=== PATIENT | male | born 1935 | race Caucasian/White ===

== ENCOUNTER 2019-08-31 16:18 | Inpatient (IN) ==
[2019-08-31] MEDS ORDERED: ZOFRAN IV ONE (16:53)
[2019-08-31] MEDS ORDERED: MORPHINE IV ONE (16:53)
--- NOTE | 2019-08-31 17:33 | EKG Report ---
Test Performed on : 08/31/2019 5:22:07 PM Test Reason : pre-op Blood Pressure : / mmHG Vent. Rate : 060 BPM Atrial Rate : 060 BPM P-R Int : 172 ms QRS Dur : 158 ms QT Int : 468 ms P-R-T Axes : 000 259 096 degrees QTc Int : 468 ms AV dual-paced rhythm Abnormal ECG When compared with ECG of 21-MAR-2016 08:18, Electronic ventricular pacemaker has replaced Electronic atrial pacemaker Unconfirmed Result
[2019-08-31 17:53] LABS: BASO# 0.03 X1000 (0.0-0.2); BASO% 0.2 % (0.0-0.8); EOS# 0.18 X1000 (0.0-0.7); EOS% 1.3 % (0.0-10.0); HEMATOCRIT 44.2 % (42.0-52.0); HEMOGLOBIN 14.5 g/dL (14.0-18.0); IMM GRAN# 0.05 X1000 (0.0-0.04); IMM GRAN% 0.4 % (0.0-0.5); LYMPH# 1.97 X1000 (1.2-3.4); LYMPH% 14.5 % (20.5-51.1); MCH 33.9 PG (27-31); MCHC 32.8 g/dL (33-37); MCV 103.3 FL (81-99); MONO# 0.65 X1000 (0.11-0.59); MONO% 4.8 % (1.7-9.3); MPV 9.8 FL (7.4-10.4); NEUT# 10.73 X1000 (1.4-6.5); NEUT% 78.8 % (42.2-75.2); PLT 171 X1000 (130-400); RBC 4.28 XMIL (4.7-6.1); RDW 12.2 % (11.5-14.5); WBC 13.61 X1000 (4.8-10.8)
[2019-08-31 17:54] LABS: URINE SOURCE CLEAN CATCH
[2019-08-31 17:56] LABS: BILIRUBIN URINE NEGATIVE (NEGATIVE); BLOOD URINE NEGATIVE (NEGATIVE); COLOR YELLOW; GLUCOSE URINE NEGATIVE (NEGATIVE); KETONE URINE NEGATIVE (NEGATIVE); LEUKOCYTES URINE NEGATIVE (NEGATIVE); NITRITE URINE NEGATIVE (NEGATIVE); PROTEIN URINE TRACE mg/dL (NEGATIVE); SP GRAVITY URINE 1.025; TURBIDITY URINE CLEAR (CLEAR); UROBILINOGEN URINE NORMAL (NORMAL)
[2019-08-31 17:57] LABS: UR EPITHELIAL CELLS <10 /HPF (<10); URINE BACTERIA NEGATIVE /HPF; URINE RBC <10 /HPF (<10); URINE WBC <10 /HPF (<10)
[2019-08-31 18:03] LABS: INR 1.07; PTT 26.7 Seconds (22.3-41.8)
--- NOTE | 2019-08-31 18:08 | Diag Imaging Result Doc PS360 ---
EXAM: CHEST-1 VIEW HISTORY: pre-op TECHNIQUE: Single view COMPARISON: 04/09/2015 FINDINGS: The lungs are well expanded. The heart is not enlarged. Left pacemaker The vessels are not distended. There are no infiltrates. No effusion identified. Nodules in the mid right lung on the prior exam are actually more difficult to see on the current exam. IMPRESSION: No definite metastatic Electronically signed by Chun Coreas 08/31/2019 6:05 PM
--- NOTE | 2019-08-31 18:10 | Diag Imaging Result Doc PS360 ---
EXAM: XRAY PELVIS W/HIP 2-3VW LT HISTORY: fall TECHNIQUE: Three views COMPARISON: 10/04/2017 FINDINGS: There is a left femoral neck fracture. Femoral head remains in the acetabulum. Femoral shaft is rotated and superiorly placed. Prior replacement of the right hip. IMPRESSION: Left femoral neck fracture Electronically signed by Chun Coreas 08/31/2019 6:08 PM
[2019-08-31 18:25] LABS: ALB/GLOB RATIO 1.3; ALBUMIN 3.9 g/dL (3.5-5.0); CALCIUM 8.9 mg/dL (8.8-10.2); CREATININE 1.5 mg/dL (0.7-1.2); POTASSIUM 5.4 mmol/L (3.5-5.1); TOTAL BILIRUBIN 0.82 mg/dL (0.20-1.00); TOTAL PROTEIN 6.8 g/dL (6.3-8.3)
--- NOTE | 2019-08-31 18:25 | PROVIDER DOCUMENTATION ---
This chart was entered by Chin Ren Scribe, acting as scribe for Jaden Narayan MD. HPI-Musculoskeletal Pain/Inj - GENERAL Chief Complaint: Hip Injury Stated Complaint: FALL Time Seen by Provider: 08/31/19 16:34 Source: patient, family, EMS - HX OF PRESENT ILLNESS-MUSKULOSKELTAL Nature of Presenting Problem: 83 yom presents to the ed v/a ems after fall. EMS reports non syncopal fall , NO LOC, Denies fainting. EMS pt reports ZOILA leg & LT sided Groin pain. 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 Quality of Pain: reports: aching Severity in ED: mild Onset/Duration: just prior to arrival Timing: still present Modifying Factors: improves with: nothing Any recent injury?: No Locality of Occurance: Home Similar Symptoms Previously?: No Recently seen or treated by another doctor?: No - FALL INJURY Location of Pain/Injury: reports: lower extremity (ZOILA leg & Lt sided groin) Pain Radiation: reports: no radiation Reason for Fall: reports: tripped. denies: fainted Symptoms prior to fall:: reports: none Loss of Consciousness: no loss of consciousness Injury Associated Symptoms: denies: arm pain, back/neck pain, chest pain, nausea, shortness of breath, vomiting - HIP/PELVIS PAIN/INJURY Pain Radiation: reports: groin (Lt sided) Context / Method of Injury: reports: fall Associated Symptoms: reports: denies symptoms - LOWER EXTREMITY PAIN/INJURY Lower Extremities Pain: leg: left Context / Method of Injury: reports: fell Associated Symptoms: reports: denies symptoms Review of Systems - Adult - REVIEW OF SYSTEMS - ADULT Constitutional: denies: chills, fever Eyes: denies: eye pain Ears, Nose, Mouth & Throat: reports: no symptoms reported Cardiovascular: denies: chest pain, palpitations Respiratory: denies: cough, shortness of breath Gastrointestinal: denies: nausea, vomiting Genitourinary: reports: no symptoms reported Musculoskeletal: reports: see HPI. denies: back pain, neck pain Integumentary: reports: no symptoms reported Neurological: reports: no symptoms reported Psychiatric: reports: no symptoms reported Endocrine: reports: no symptoms reported Hematologic/Lymphatic: reports: no symptoms reported Allergic/Immunologic: reports: no symptoms reported All Other Systems: Reviewed and Negative Past History - Adult - PAST MEDICAL HISTORY-ADULT Review of Records: reports: Old Records Reviewed, Nursing Assessment Review, Medications Reviewed, Social history reviewed & non-contributory. Major Childhood Illnesses: reports: denies history Cardiovascular: reports: pacemaker Respiratory: reports: denies history Gastrointestinal: reports: GERD Obstetrical/Gynecological: reports: denies history Genitourinary: reports: other (urinary freq. per H& P) Musculoskeletal: reports: denies history Neurological: reports: denies history Psychiatric: reports: denies history Endocrine/Immune: reports: denies history Other Conditions: reports: denies history - PRIOR SURGERIES/PROCEDURES Surgical/Procedure History: reports: pacemaker, tonsillectomy - IMMUNIZATION STATUS Childhood Immunizations: See Nurse Assessment Flu Vaccine: See Nurse Assessment - FAMILY HISTORY Family History: reviewed, not pertinent - SOCIAL HISTORY Smoking: quit greater than 1 year, cigarettes Substance Use: alcohol Alcohol Use Frequency: once a week Number of drinks per typical drinking period:: 2 drinks (wine) Physical Exam-Injury Related - Physical Exam-Injury Related Initial Vital Signs Reviewed: Yes General Appearance: appears well, alert, mild distress Eyes: PERRL/EOMI Head, Ears, Nose, Mouth & Throat: pharynx normal Respiratory: chest non-tender, lungs clear, normal breath sounds Cardiovascular: normal peripheral pulses, regular rate, rhythm Abdominal Exam: non tender, soft Male Genitalia: deferred Rectal Exam: deferred Hemoccult Exam: deferred Extremity: other (shortend flex 45 degree angle) Integumentary: normal color Psych/Mental Status: normal mood/affect, normal thought content, normal thought process, oriented x 3 - Glascow Coma Score Best Eye Response ([place]): (4) open spontaneously Best Verbal Response ([place]): (5) oriented Best Motor Response ([place]): (6) obeys commands [place] Total: 15 Progress - PLAN OF CARE/RESULTS Progress/Plan/Lab Results: Vital Signs - 8 hr 08/31/19 16:59 Temperature 98.3 F Pulse Rate 67 Respiratory Rate 17 Blood Pressure 165/90 O2 Sat by Pulse Oximetry 95 Laboratory Results - last 24 hr 08/31/19 08/31/19 08/31/19 17:46 17:46 17:46 WBC 13.61 H RBC 4.28 L Hgb 14.5 Hct 44.2 MCV 103.3 H MCH 33.9 H MCHC 32.8 L RDW Std Deviation 12.2 Plt Count 171 MPV 9.8 Immature Gran % (Auto) 0.4 Neut % (Auto) 78.8 H Lymph % (Auto) 14.5 L Heard % (Auto) 4.8 Eos % (Auto) 1.3 Baso % (Auto) 0.2 Immature Gran # (Auto) 0.05 H Neut # (Auto) 10.73 H Lymph # (Auto) 1.97 Heard # (Auto) 0.65 H Eos # (Auto) 0.18 Baso # (Auto) 0.03 PT 14.0 INR 1.07 PTT (Actin FS) 26.7 Urine Source CLEAN CATCH Urine Color YELLOW Urine Turbidity CLEAR Urine pH 6.0 Ur Specific [place] 1.025 Urine Protein TRACE A Ur Glucose (Stick) NEGATIVE Ur Ketones (Stick) NEGATIVE Urine Blood NEGATIVE Urine Nitrite NEGATIVE Urine Bilirubin NEGATIVE Urobilinogen Dipstick NORMAL Urine Leukocytes NEGATIVE Urine WBC (Auto) <10 Urine RBC (Auto) <10 U Epithel Cells (Auto) <10 Urine Bacteria (Auto) NEGATIVE Orders Category Date Time Status Nursing- Obtain EKG ONCE Care 08/31/19 16:51 Active CHEST-1 VIEW [RAD] Stat Exams 08/31/19 16:51 Completed XRAY PELVIS W/HIP 2-3VW LT [RAD] Stat Exams 08/31/19 16:51 Completed CBC WITH DIFF [HEME] Stat Lab 08/31/19 17:46 Completed COMPREHENSIVE METABOLIC PANEL [CHEM] Stat Lab 08/31/19 17:46 Received PROTIME WITH INR [COAG] Stat Lab 08/31/19 17:46 Completed PTT [COAG] Stat Lab 08/31/19 17:46 Completed URINALYSIS [URINALYSIS] Stat Lab 08/31/19 17:46 Completed Morphine Med 08/31/19 16:53 Discontinued 4 mg IV NOW ONE Ondansetron [Zofran] Med 08/31/19 16:53 Discontinued 8 mg IV NOW ONE EKG [EKG] Stat Ther 08/31/19 16:51 Draft Result Diagrams: 08/31/19 17:46 - EKG 1 Time of EKG reading by physician:: 17:22 EKG Read and Signed by:: Jaden Narayan EKG Interpretation (*Must complete 3 of following elements*): Abnormal Rate: 60 Rhythm: AV-dual paced rhythm [place]: normal QRS: normal [place] Interval: normal ST Wave: normal - XRAY 1 XRAY: Left XRAY Study: Hip Impression: Abnormal (intertroch fx) 2 XRAY Study: Chest Impression: Normal (nothing acute) - CONSULTS/PCP/HOSPITALIST Notification #1 *Consult/PCP/Hospitalist*: Ta Time Discussed: 18:15 Reason/Comments: Hospitalist admit, he will report to ortho here in am #2 Consult: truong Garcia Time Discussed: 18:24 Consult Disposition: Will see in ED, Admit Departure - Departure Date of Disposition Decision: 08/31/19 Time of Disposition Decision: 18:23 DIAGNOSIS: Intertrochanteric fracture of left hip Qualifiers: Encounter type: initial encounter Fracture type: closed Fracture alignment: displaced Qualified Code(s): S72.142A - Displaced intertrochanteric fracture of left femur, initial encounter for closed fracture Disposition: ADMITTED INPATIENT 09 Certified Medical Emergency: Emergent Condition: Good Referrals and Follow-Ups: Camille Man MD [Primary Care Provider] - - Critical Care Note This patient required my direct & personal management of CC.: No Attestation - Physician/ AMY Attestation Patient care was provided by Advanced Practice Provider:: No The physician spent face to face time with patient:: Yes Advanced Practice Provider documentation review:: Supervising physician onsite and consulted in the evaluation and care of this patient. The physician did have a face to face encounter with the patient. This chart was documented by the indicated scribe, (Chin Ren, Whitney) and accurately reflects the services I performed and decisions made by me, Jaden Narayan MD, as attested by the provider's signature.
[2019-08-31] MEDS ORDERED: TYLENOL PO PRN (20:21)
[2019-08-31] MEDS ORDERED: ZOFRAN IV PRN (20:21)
--- NOTE | 2019-08-31 22:32 | HISTORY AND PHYSICAL ---
PRIMARY CARE PROVIDER: Camille Man. TELECOM SALES CONSULTANT: Dr. Stevens. CHIEF COMPLAINT: Fall. HISTORY OF PRESENT ILLNESS: Mr. 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 He reports he lost his balance while getting dressed today and he fell backwards on the carpet. He did hit his head. However, there was no loss of consciousness. He had some immediate left hip pain, was unable to get up. EMS was called. He was brought into the ED. There was no dizziness, syncope, chest pain, or shortness of breath prior to his fall. Workup in the ED did show a left femoral neck fracture. Laboratory data shows a white count of 13, I believe is reactive, a slightly elevated potassium at 5.4, a BUN of 25, creatinine 1.5. He will be placed in with a orthopedic consult. We will start IV fluids now. Recheck his potassium in the a.m. Make him NPO after midnight. A Blanco catheter now if the patient is in agreement and continue with the pain regimen. PAST MEDICAL HISTORY: Peripheral neuropathy, BPH, GERD, symptomatic bradycardia for which he received a dual-chamber pacemaker. ALLERGIES: To sulfa, Lamisil, and Versed. HOME MEDICATIONS: Vitamin B12, Cosopt ophthalmic solution, Xalatan, multivitamin, fish oil, and Prilosec/bicarbonate combo. REVIEW OF SYSTEMS: Twelve-point review of systems completely negative except for those mentioned in HPI. There was no headache. No fever. No chills. No cough. No chest pain. No shortness of breath. No presyncope. No abdominal pain. PHYSICAL EXAMINATION: VITAL SIGNS: Temperature is 98.3 degrees, heart rate 67, respirations 17, blood pressure 165/90, O2 is 95% on room air. GENERAL: Mr. Butler is a pleasant 83-year-old male who is lying in the bed in no acute distress. HEENT: Atraumatic, normocephalic. PERRL. He does have an eye patch over his left eye. CARDIOVASCULAR: S1, S2 appreciated. No murmurs, gallops, rubs noted. RESPIRATORY: Lung sounds clear bilaterally. GASTROINTESTINAL: Soft, nontender, nondistended. Positive bowel sounds 4 quadrants. EXTREMITIES: Lower extremities negative for edema. NEUROLOGIC: No focal deficits noted. DIAGNOSTIC DATA: Chest x-ray, no definite metastatic and left-sided pacemaker, vessels are not distended. No infiltrates. No effusions. Nodules in the mid right lung on the prior exam are actually more difficult to see on current exam. Left femoral neck fracture on hip x-ray. EKG, AV paced at 60 beats per minute. LABORATORY DATA: White count 13, hemoglobin and hematocrit 14 and 44, platelet count 171,000. Sodium 138, potassium 5.4, BUN 25, creatinine 1.5, blood glucose is 124, AST 43. Urinalysis is negative. ASSESSMENT AND PLAN: 1. Status post mechanical fall with a left femoral neck fracture. The patient will be made NPO after midnight. Orthopedics has been consulted. He has requested Dr. Jarvis do the surgery as well. We will continue with antiemetics and pain regimen. Bedrest. 2. Mild hyperkalemia. We will do IV fluids now. Recheck his potassium in the a.m. 3. Chronic kidney disease appears to be stable. 4. Leukocytosis, likely reactive. No signs of infection. 5. Peripheral neuropathy. We will continue home medications when verified. 6. Benign prostatic hypertrophy. 7. Gastroesophageal reflux disease. 8. Left eye surgery. Patient does wear a patch. 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 9. Further recommendation to follow physician evaluation, laboratory and diagnostic data. Dictated by CARMELITA Oates for Chevy Alves MD cc: MD Camille Tafoya MD Justin Daigre, MD MTDD
[2019-08-31] MEDS: NS 1,000 ML IV SCH (22:59)
[2019-08-31] MEDS ORDERED: MELATONIN PO ONE (23:20)
[2019-09-01 01:42] LABS: URINE SOURCE CATH
[2019-09-01 01:44] LABS: BILIRUBIN URINE NEGATIVE (NEGATIVE); BLOOD URINE MODERATE (NEGATIVE); COLOR YELLOW; GLUCOSE URINE NEGATIVE (NEGATIVE); KETONE URINE NEGATIVE (NEGATIVE); LEUKOCYTES URINE NEGATIVE (NEGATIVE); NITRITE URINE NEGATIVE (NEGATIVE); PH URINE 5.5; PROTEIN URINE TRACE mg/dL (NEGATIVE); SP GRAVITY URINE 1.017; TURBIDITY URINE CLEAR (CLEAR); UR EPITHELIAL CELLS <10 /HPF (<10); URINE BACTERIA NEGATIVE /HPF; URINE RBC 20-40 /HPF (<10); URINE WBC <10 /HPF (<10); UROBILINOGEN URINE NORMAL (NORMAL)
--- NOTE | 2019-09-01 04:17 | HISTORY AND PHYSICAL ---
ADDENDUM: I have seen and examined Mr. Butler today. Mr. Butler is an 83-year-old male, who has a past medical history of GERD and also some peripheral neuropathy with loss some balance trying to put on his pants and accidentally fell, hitting his left hip. Immediately could not get up, was brought into the emergency room. He was evaluated. Imaging studies showed that he has a left femoral neck fracture. He has been admitted for further medical and Orthopedics evaluation. Of note, Mr. Butler had a right hemiarthroplasty [place] [address] Jarvis. His vitals have all been reviewed, no concerns. His laboratory data shows WBC of 13.61, hemoglobin is 14.5, MCV of 103. His chemistry shows potassium is 5.4. His creatinine is 1.5, which seems to be his baseline for the past couple years. Mildly acidotic with a bicarbonate of 21. ASSESSMENT: 1. Status post mechanical fall resulting into a left femoral neck fracture. 2. Gastroesophageal reflux disease. 3. Chronic kidney disease complicated with mild non gap metabolic acidosis and mild hyperkalemia. We will hydrate the patient overnight. Re-evaluate his laboratory data and go from there. PERIOPERATIVE EVALUATION: Mr. Butler, 83-year-old, who only has GERD as his chronic medical condition. He has a very good performance status at home. He denies any chest pain, no shortness of breath, no syncope. His EKG on admission shows paced rhythm with a rate of 60. No ST or T- wave abnormality. He denies any congestive heart failure. He denies any chronic lung disease or chronic liver disease. He is not on any anticoagulation. His current hip fracture is urgent to emergent to restore his functionality way. We recommend surgery to proceed. Mr. Butler is a low risk patient for an intermediate nonvascular surgery. Please refer to the details of the history and physical which has been dictated by the SENIOR BOOKKEEPER in the chart. cc: Chevy Alves MD
[2019-09-01 06:20] LABS: BASO# 0.03 X1000 (0.0-0.2); BASO% 0.2 % (0.0-0.8); EOS# 0.43 X1000 (0.0-0.7); EOS% 3.2 % (0.0-10.0); HEMATOCRIT 42.1 % (42.0-52.0); HEMOGLOBIN 13.8 g/dL (14.0-18.0); IMM GRAN# 0.02 X1000 (0.0-0.04); IMM GRAN% 0.1 % (0.0-0.5); LYMPH# 1.83 X1000 (1.2-3.4); LYMPH% 13.7 % (20.5-51.1); MCH 33.9 PG (27-31); MCHC 32.8 g/dL (33-37); MCV 103.4 FL (81-99); MONO# 0.75 X1000 (0.11-0.59); MONO% 5.6 % (1.7-9.3); MPV 9.6 FL (7.4-10.4); NEUT# 10.28 X1000 (1.4-6.5); NEUT% 77.2 % (42.2-75.2); PLT 162 X1000 (130-400); RBC 4.07 XMIL (4.7-6.1); RDW 12.1 % (11.5-14.5); WBC 13.34 X1000 (4.8-10.8)
[2019-09-01 07:07] LABS: ALB/GLOB RATIO 1.4; ALBUMIN 3.6 g/dL (3.5-5.0); CALCIUM 8.7 mg/dL (8.8-10.2); CREATININE 1.3 mg/dL (0.7-1.2); MAGNESIUM 2.1 mg/dL (1.5-2.7); POTASSIUM 4.4 mmol/L (3.5-5.1); TOTAL BILIRUBIN 1.73 mg/dL (0.20-1.00); TOTAL PROTEIN 6.1 g/dL (6.3-8.3)
--- NOTE | 2019-09-01 07:09 | EKG Report ---
Test Performed on : 09/01/2019 07:00:23 AM Test Reason : fu Blood Pressure : / mmHG Vent. Rate : 069 BPM Atrial Rate : 069 BPM P-R Int : 200 ms QRS Dur : 156 ms QT Int : 450 ms P-R-T Axes : 019 197 020 degrees QTc Int : 482 ms Atrial-sensed ventricular-paced rhythm Abnormal ECG When compared with ECG of 31-AUG-2019 17:22, (Unconfirmed) Vent. rate has increased BY 9 BPM Confirmed by Peter RIOJAS, Jesús Bravo ([id number]) on 09/02/2019 6:14:31 PM
[2019-09-01] MEDS ORDERED: KEFZOL 1 GM/D5W 1 GM/50 ML IVPB IV ONE ×2 (08:57→09:04)
[2019-09-01] MEDS: MORPHINE IV PRN ×2 (09:48→11:26)
[2019-09-01] MEDS: NS 1,000 ML IV SCH ×2 (11:26→22:48)
[2019-09-01] MEDS: COSOPT OPHTH SOLN OPH SCH (11:33)
--- NOTE | 2019-09-01 12:10 | ORTHOPAEDICS CONSULTATION ---
DATE: 09/01/2019 CHIEF COMPLAINT: Left femoral neck fracture due to fall. HISTORY OF PRESENT ILLNESS: Mr. Butler is an 83-year-old male who states that he fell backwards yesterday onto a carpeted floor. He states that he originally did not think he had hurt himself but then found that his left hip was bothering him. He denies hitting his head and had no loss of consciousness. EMS was called and he was transported to the ED. Workup in the ER showed a left femoral neck fracture. Orthopedics was consulted for this. PAST MEDICAL HISTORY: Peripheral neuropathy, BPH, GERD, symptomatic bradycardia for which he received a pacemaker. PAST SURGERY HISTORY: Tonsillectomy and adenoidectomy, eye surgery, and a right hip hemiarthroplasty 2 years ago. ALLERGIES: Sulfa, Lamisil, and Versed. HOME MEDICATIONS: Vitamin B12, Cosopt ophthalmic solution, Xalatan, multivitamin, fish oil, and a Prilosec/bicarbonate combination. REVIEW OF SYSTEMS: A 10 point review of systems was negative except as mentioned in the HPI. He denies any headache, any other injury. No fever, no cough, no congestion. PHYSICAL EXAMINATION: General: Mr. Georgi Butler is lying in bed with no complaints at this time. His vital signs are 98 temperature, blood pressure 159/67, and a heart rate of 66. Cardiovascular: Regular rate. Respiratory: Equal bilateral chest movement. No distress. Left lower extremity is slightly shortened and externally rotated. He has a strong palpable pedal pulse. He does have good sensation distally to his injury. LABS AND IMAGING: His labs reveal a white count of 13.3 and a creatinine of 1.3. X-ray of the left hip reveals a left femoral neck fracture. ASSESSMENT: Left femoral neck fracture. PLAN: Mr. Butler has been NPO since midnight last night. He will be given a gram of Ancef prior to transport to the OR. Dr. Reid has met with the patient and will be doing a left hip hemiarthroplasty today. Risks and benefits of surgery were discussed with the patient including, but not limited to risk of anesthesia, bleeding, infection, nerve injury, and . Mr. Butler wishes to proceed at this time. He will be going to surgery later this afternoon. Dictated by CARMELITA Crockett for Jason Reid MD cc: Jason Reid MD
--- NOTE | 2019-09-01 16:53 | PROGRESS NOTE ---
DATE: 09/01/2019 SUBJECTIVE: This morning Mr. Butler refers to be doing well. He is awaiting for his surgery. OBJECTIVE: Vital Signs: Blood pressure is 148/68, pulse of 59, respirations 20, temperature 97.9 degrees. General: Mr. Butler is an 83-year-old gentleman. He is in bed, in no distress. HEENT: Mucosa is pink and moist. Anicteric. Acyanotic. Neck: Supple. Chest: Good air entry bilaterally. There were no crepitations, no rhonchi. Cardiovascular: Regular rate and rhythm. No murmurs, no rubs, no gallops. Gastrointestinal: Abdomen was soft, nontender. Bowel sounds present. Extremities: No pedal edema. The left lower extremity is relatively shorter and externally rotated. Distal pulses present. Central Nervous System: Patient is awake, alert, and oriented. LABORATORY DATA: WBC is 13.34, hemoglobin is 13.8, platelet count of 162,000. Chemistry is also reviewed. Creatinine is down to 1.3. Rest of chemistry is unremarkable. CURRENT MEDICATIONS: The patient's current medications have all been reviewed. ASSESSMENT: 1. Status post mechanical fall resulting into a left femoral neck fracture. Patient is pending surgical intervention. 2. History of gastroesophageal reflux disease. 3. Acute on chronic kidney disease. Creatinine is down to 1.3 this morning. PLAN: In general, I think Mr. Butler is doing well. He is pending surgical intervention today. Hopefully after that we will get physical therapy to evaluate him and plan his discharge to rehab. cc: Chevy Alves MD
[2019-09-01] MEDS ORDERED: DIPRIVAN 1% ONE ×2 (16:55→17:39)
[2019-09-01] MEDS ORDERED: FENTANYL ONE (16:55)
[2019-09-01] MEDS ORDERED: XYLOCAINE-MPF 2% ONE (17:06)
[2019-09-01] MEDS ORDERED: QUELICIN (DOSE) ONE (17:07)
[2019-09-01] MEDS ORDERED: ROBINUL ONE (17:07)
[2019-09-01] MEDS ORDERED: TORADOL ONE (17:10)
[2019-09-01] MEDS ORDERED: DURAMORPH ONE (17:10)
[2019-09-01] MEDS ORDERED: MARCAINE 0.25% PF ONE (17:10)
[2019-09-01] MEDS ORDERED: EXPAREL 1.3% ONE (17:11)
[2019-09-01] MEDS ORDERED: NEOSPORIN G.U. IRRIGANT ONE (17:11)
[2019-09-01] MEDS ORDERED: SODIUM CHLORIDE 0.9% ONE (17:11)
[2019-09-01] MEDS ORDERED: CYKLOKAPRON 1,000 MG/NS 1,000 MG/100 ML IVPB ONE (17:11)
[2019-09-01] MEDS ORDERED: EPHEDRINE ONE (18:07)
[2019-09-01] MEDS ORDERED: DECADRON ONE (19:06)
[2019-09-01] MEDS ORDERED: OFIRMEV 1000 MG/ISOTONIC SOLN 1,000 MG/100 ML BOTTLE ONE (19:06)
[2019-09-01] MEDS ORDERED: PROTONIX PO SCH (19:15)
[2019-09-01] MEDS ORDERED: ZOFRAN ODT PO PRN (19:30)
[2019-09-01] MEDS ORDERED: MILK OF MAGNESIA PO PRN (19:30)
[2019-09-01] MEDS ORDERED: ZOFRAN IV PRN (19:30)
[2019-09-01] MEDS ORDERED: OXY IR PO PRN ×2 (19:30)
[2019-09-01] MEDS ORDERED: TYLENOL PO SCH (19:30)
--- NOTE | 2019-09-01 22:26 | OPERATIVE NOTE ---
PROCEDURE DATE: 09/01/2019 PREOPERATIVE DIAGNOSIS: Left displaced femoral neck fracture. POSTOPERATIVE DIAGNOSIS: Left displaced femoral neck fracture. PROCEDURE PERFORMED: Left bipolar hemiarthroplasty using a DePuy Actis size 10 standard offset with a 28 mm +1.5 head and a 52 mm bipolar. ANESTHESIA: Spinal. SURGEON: Jason Reid MD. SLEEVE SETTER SAFETY STITCH: CARMELITA Crockett, who was present throughout the case and whose assistance was critical for successful completion of case. BLOOD LOSS: Minimal. DESCRIPTION OF PROCEDURE: The patient was brought to the operative suite and placed in supine position. After successful administration of spinal anesthesia, the patient was placed on the OSI table in the usual position for left hip. The left hip was then prepped and draped in usual sterile fashion. A longitudinal incision was made beginning 3 cm distal and 3 cm lateral to the anterior superior iliac spines and extending distally and slightly laterally 8 cm. I dissected sharply through the skin and subcutaneous tissue down tensor fascia. The tensor fascia was incised and dissected bluntly down deep tensor fascia. The deep tensor fascia was incised and circumflex vessels were electrocauterized exposing the anterior capsule. A T capsulotomy was performed exposing the femoral neck. Femoral neck cut was made with an oscillating saw. The head was removed with power corkscrew. The head was measured to 52. A 52 trial was found to be excellent stability. Attention was then directed to the femur. The femur was externally rotated, extended, adducted, and elevated out of the wound with the hook on the OSI bed. The lateral neck was rongeured. The canal was serially broached to a size 10. The calcar planer was used. A size 10 standard offset + 1.5 neck length was trialed with a 50 mm bipolar, found to be excellent fit and fill, excellent offset, excellent stability of the hip. The trial was then removed. Definitive stem was seated onto the femur and then the 28 mm +1.5 head with the 52 mm bipolar was seated onto the Lebron taper. The hip was then reduced. It was again found to be in excellent position. The anterior capsule was repaired with a 0 V-Loc. The hip was copiously irrigated with normal saline containing irrigant and Vashe irrigation and then it was copiously infiltrated with Exparel including the posterior capsule, anterior capsule, intermuscular, and subcutaneous tissue. The tensor fascia was then closed with a running 0 V-Loc. The skin edge approximated with 2-0 Vicryl. Skin was closed with 4-0 Monocryl and Prineo. Sterile dressing was applied. The patient tolerated the procedure well without complication. At the end the procedure, all counts correct x2. The patient was transferred to the recovery room stable condition. cc: Jason Reid MD
[2019-09-01] MEDS: LYRICA PO SCH (22:46)
[2019-09-01] MEDS: CELEBREX PO SCH (22:46)
[2019-09-01] MEDS: COLACE PO SCH (22:47)
[2019-09-01] MEDS: ULTRAM PO SCH (22:47)
[2019-09-01] MEDS: XALATAN 0.005% OPH SOLN BOTH EYES SCH (22:48)
[2019-09-02] MEDS: KEFZOL 1 GM/D5W 1 GM/50 ML IVPB IV SCH ×2 (01:15→09:08)
[2019-09-02] MEDS: PATIENT'S OWN MED PO SCH ×2 (04:00→07:11)
[2019-09-02] MEDS: NS 1,000 ML IV SCH ×3 (04:00→18:05)
[2019-09-02 06:50] LABS: HEMATOCRIT 37.6 % (42.0-52.0); HEMOGLOBIN 12.4 g/dL (14.0-18.0); MCH 34.8 PG (27-31); MCV 105.6 FL (81-99); MPV 10.2 FL (7.4-10.4); RBC 3.56 XMIL (4.7-6.1); RDW 12.4 % (11.5-14.5); WBC 13.15 X1000 (4.8-10.8)
[2019-09-02] MEDS: XARELTO PO SCH (07:11)
[2019-09-02] MEDS: TYLENOL PO SCH ×4 (07:13→23:34)
[2019-09-02] MEDS: ULTRAM PO SCH ×4 (07:13→23:34)
[2019-09-02 07:20] LABS: CALCIUM 8.3 mg/dL (8.8-10.2); CREATININE 1.3 mg/dL (0.7-1.2); POTASSIUM 4.7 mmol/L (3.5-5.1)
[2019-09-02 07:45] LABS: ALBUMIN 3.4 g/dL (3.5-5.0); CALCIUM 8.4 mg/dL (8.8-10.2); CREATININE 1.3 mg/dL (0.7-1.2); PHOSPHORUS 3.2 mg/dL (2.7-4.5); POTASSIUM 4.7 mmol/L (3.5-5.1)
[2019-09-02] MEDS: VITAMIN B-12 PO SCH (09:06)
[2019-09-02] MEDS: LYRICA PO SCH ×2 (09:06→23:34)
[2019-09-02] MEDS: COLACE PO SCH ×2 (09:06→23:34)
[2019-09-02] MEDS: PEPCID PO SCH (09:07)
[2019-09-02] MEDS: CELEBREX PO SCH ×2 (09:07→23:33)
[2019-09-02] MEDS: COSOPT OPHTH SOLN OPH SCH (09:07)
[2019-09-02] MEDS: FISH OIL CONCENTRATE PO SCH (09:07)
[2019-09-02] MEDS: PERIDEX MT SCH (09:07)
[2019-09-02] MEDS: THERA M PLUS PO SCH (09:08)
--- NOTE | 2019-09-02 11:25 | PROGRESS NOTE ---
DATE: 09/02/2019 SUBJECTIVE: The patient reports not being able to have a bowel movement since last Sunday. He usually goes to the bathroom every day. Besides that, no other issues noted. OBJECTIVE: Vital Signs: Temperature 97.6 degrees, heart rate 66, respiratory rate 16, blood pressure 142/69, O2 saturation 93% on room air. General: This is an 83-year-old, male, lying in bed in no acute distress. Cardiovascular: S1, S2 heard. No murmurs, gallops, or rubs. Regular rate and rhythm. Respiratory: Clear bilaterally to auscultation. No work of breathing or using accessory muscles. Abdomen: Soft, nontender to palpation. Bowel sounds present. No organomegaly. Extremities: No clubbing, cyanosis, or edema. Peripheral pulses present in both legs. Dressing covering the left hip. Neurological: The patient is awake, alert, oriented x3. LABORATORY DATA: White cell count 13.15, hemoglobin 12.4, hematocrit 37.6, platelets 150,000. Creatinine 1.3. ASSESSMENT AND PLAN: 1. Left femoral neck fracture, status post left bipolar arthroplasty. Clinically, the patient is doing okay. Pain is under control. Orthopedics is following this patient. Will follow recommendations. 2. Acute on chronic kidney disease. Creatinine remains to be the same in comparing with yesterday at 1.3. Will continue to monitor. 3. History of gastroesophageal reflux disease. Will continue with Protonix. 4. Leukocytosis, most likely related to surgery. Will continue checking CBC daily. 5. Disposition. The patient is being followed by Orthopedics, and will be discharged to rehab once this patient is cleared by Orthopedics. cc: Jorge Arce MD
[2019-09-02] MEDS: LACTULOSE PO SCH (12:04)
--- NOTE | 2019-09-02 12:25 | ORTHOPAEDICS PROGRESS NOTE ---
DATE: 09/02/2019 SUBJECTIVE: Georgi Butler is an 83-year-old male postoperative day 1 from a left bipolar hemiarthroplasty. He has no complaints. OBJECTIVE: He is a well-developed, well-nourished male. He is alert, oriented, and cooperative today. His wound is clean, dry, intact without sign of infection. His leg is neurovascularly intact. LABORATORY: His hemoglobin is 12.4, hematocrit is 37.6. ASSESSMENT: Stable left hip bipolar hemiarthroplasty. PLAN: We will begin physical therapy with him this morning. He will likely go to rehab later in the week. cc: Jason Reid MD
[2019-09-02] MEDS: XALATAN 0.005% OPH SOLN BOTH EYES SCH (23:30)
[2019-09-03] MEDS: LACTULOSE PO SCH ×2 (01:14→08:29)
[2019-09-03] MEDS: PERIDEX MT SCH ×2 (01:16→08:29)
[2019-09-03] MEDS: ULTRAM PO SCH ×2 (06:25→12:20)
[2019-09-03] MEDS: PATIENT'S OWN MED PO SCH (06:26)
[2019-09-03] MEDS: XARELTO PO SCH (06:26)
[2019-09-03] MEDS: TYLENOL PO SCH ×2 (06:26→12:21)
[2019-09-03 07:03] LABS: HEMATOCRIT 33.6 % (42.0-52.0); HEMOGLOBIN 10.9 g/dL (14.0-18.0); MCH 34.7 PG (27-31); MCHC 32.4 g/dL (33-37); MPV 10.1 FL (7.4-10.4); RBC 3.14 XMIL (4.7-6.1); RDW 12.4 % (11.5-14.5); WBC 12.18 X1000 (4.8-10.8)
[2019-09-03 07:29] LABS: CALCIUM 7.7 mg/dL (8.8-10.2); CREATININE 1.5 mg/dL (0.7-1.2); PHOSPHORUS 3.3 mg/dL (2.7-4.5)
[2019-09-03] MEDS: CELEBREX PO SCH (08:27)
[2019-09-03] MEDS: COLACE PO SCH (08:28)
[2019-09-03] MEDS: THERA M PLUS PO SCH (08:28)
[2019-09-03] MEDS: FISH OIL CONCENTRATE PO SCH (08:28)
[2019-09-03] MEDS: VITAMIN B-12 PO SCH (08:28)
[2019-09-03] MEDS: PEPCID PO SCH (08:29)
[2019-09-03] MEDS: COSOPT OPHTH SOLN OPH SCH (08:30)
[2019-09-03] MEDS: LYRICA PO SCH (08:32)
--- NOTE | 2019-09-03 10:49 | DISCHARGE SUMMARY ---
ADMISSION DATE: 08/31/2019 DISCHARGE DATE: 09/03/2019 PRIMARY CARE PHYSICIAN: Dr. Camille Man. ADMISSION DIAGNOSES: 1. Status post mechanical fall with a left femoral neck fracture. 2. Mild hyperkalemia. 3. Chronic kidney disease. 4. Leukocytosis, likely reactive with no signs of infection. 5. Peripheral neuropathy. 6. Benign prostatic hypertrophy. 7. Gastroesophageal reflux disease. 8. Left eye surgery, and wears a patch, and is blind in his left eye. DISCHARGE DIAGNOSES: 1. Left femoral neck fracture, status post left bipolar arthroplasty secondary to mechanical fall. 2. Acute on chronic kidney disease, stable. 3. History of gastroesophageal reflux disease. 4. Leukocytosis, reactive, improved. SUMMARY OF FINDINGS: This is an 83-year-old male who presented to the ER after he lost his balance while getting dressed, and fell backwards on his carpet and hit his head. No loss of consciousness was noted. There was immediate left hip pain, and was unable to get up, so they called EMS. He was brought to the emergency department. He did not have any dizziness, syncope, shortness of breath, or chest pain. In the ED, his x-ray showed a left femoral neck fracture. He had a white count of 13 that was believed to be reactive. Creatinine was 1.5. We placed an Orthopedic consult, placed him on IV fluids. Orthopedics did his surgery on 09/01/2019. He tolerated the procedure well. His white blood cell count has come down to 12.18. His electrolytes are improved. He has remained afebrile for greater than 24 hours. Physical Therapy has been following the patient, and it is now felt that he can safely be discharged to rehab today. DISCHARGE MEDICATIONS: Include vitamin B12 at 1000 mcg p.o. daily, Cosopt ophthalmic solution 1 drop ophthalmic daily, Xalatan 1 drop to both eyes at bedtime, milk of magnesia 30 mL p.o. every 6 hours p.r.n., multivitamin 1 p.o. daily, omega-3 with fatty acid and fish oil 1 p.o. daily, Zofran ODT 8 mg p.o. every 6 hours p.r.n., Oxy IR 5 mg p.o. every 3 hours p.r.n. (#40 with no refills), Lyrica 75 mg p.o. b.i.d. (#60 with no refills), Xarelto 10 mg p.o. every 24 hours (#35 with no refills), omeprazole/sodium bicarbonate 1 p.o. daily. FOLLOWUP: He will follow up with his primary care physician once he has completed his rehab stay. All discharge instructions have been reviewed with the patient, and he verbalized understanding. TIME SPENT: A 35-minute discharge. Dictated by CARMELITA Lantigua for Jorge Arce MD Addendum: Patient seen and examined by myself. Agree with CARMELITA note. It reflects my assessment and plan. Patient is being discharged from hospital in stable condition to rehab. Will be seen by PCP in a week upon rehab discharge. cc: CARMELITA Lantigua MD Lindsay E. Smith, MD MTDD
[2019-09-03 12:00] VITALS: BP 142/72
[2019-09-03] MEDS ORDERED: FLEET ENEMA PR ONE (16:00)
--- NOTE | 2019-09-03 20:10 | ORTHOPAEDICS PROGRESS NOTE ---
DATE: 09/03/2019 SUBJECTIVE: Georgi Butler is an 83-year-old male, status post right TFN. He has no complaints. OBJECTIVE: He is a well developed, well nourished male. He is alert, oriented, and cooperative. Exam of his leg reveals the incisions are healing nicely. His leg is neurovascularly intact. There is no sign of DVT. His hematocrit is 33.6. ASSESSMENT: Right intertrochanteric fracture, status post trochanteric fixation nail placement. PLAN: He will continue physical therapy. He will likely go to rehab later in the week. We will get him to change his dressing today. cc: Jason Reid MD
--- NOTE | 2019-09-03 20:13 | ORTHOPAEDICS PROGRESS NOTE ---
DATE: 09/03/2019 SUBJECTIVE: Georgi Butler is an 83-year-old male postoperative day 2 from a left bipolar hemiarthroplasty. He has no complaints except for constipation. OBJECTIVE: General: He is a well-developed, well-nourished male. He is alert, oriented, and cooperative with exam. Extremities: Examination of his hip reveals the incision is healing nicely. There is no sign of infection. He has no sign of DVT. He has good early range of motion of his hip. Abdomen: Soft. ASSESSMENT: Left bipolar hemiarthroplasty with constipation. PLAN: He has taken some mag citrate. If that does not work, they will likely give him some Dulcolax or maybe even an enema if necessary. He will likely go to rehab later in the week. He will continue physical therapy. cc: Jason Reid MD
== END 2019-09-03 16:23 | DRG 470 ==
LOC: SUPCPDRO → ED 16:18 → SUATTDRO 19:05 → 4N 19:05
PROVIDERS: ATTEND Internal Medicine